=== PATIENT | female | born 2000 | race Two or more races ===

== ENCOUNTER 2022-03-02 19:24 | Emergency (ER) | payer OTHER ==
--- NOTE | 2022-03-02 19:45 | NUR ---
CALLED TO TRIAGE NO ANSWER
--- NOTE | 2022-03-02 20:15 | NUR ---
PATIENT NOT IN WAITING ROOM
== END 2022-03-02 20:15 | disposition left against medical advice (07) ==
LOC: ER 19:28
DX: Z53.21 Procedure and treatment not carried out due to patient leaving prior to being seen by health care provider (principal)